=== PATIENT | female | born 1950 ===

== ENCOUNTER 2024-08-12 10:46 | Emergency (ER) | payer MEDICARE, OTHER ==
[~2024-08-12] VITALS: Ht 152.4 cm; Wt 57.6 kg
[2024-08-12] VITALS (11 sets, daily range): BP systolic 110–137; BP diastolic 52–94
[2024-08-12] MEDS ORDERED: PAXLOVID PO ×2 (13:25→13:38)
== END 2024-08-12 13:56 | disposition home or self-care (01) ==
LOC: ED 10:46
DX: U07.1 COVID-19 (principal); R68.83 Chills (without fever); R09.81 Nasal congestion; R05.9 Cough, unspecified; H92.09 Otalgia, unspecified ear; I10 Essential (primary) hypertension; E11.9 Type 2 diabetes mellitus without complications; K21.9 Gastro-esophageal reflux disease without esophagitis